=== PATIENT | male | born 1950 | race Caucasian/White ===

== ENCOUNTER 2017-01-09 21:11 | Emergency (ER) | payer OTHER, BC ==
[2017-01-09 21:23] VITALS: O2SAT 92
[2017-01-09] MEDS ORDERED: TDAP ADULT 0.5 ML INJ (BOOSTRIX) IM ONE (22:09)
--- NOTE | 2017-01-09 23:06 | EDPHY ---
H & P Stated Complaint: +etoh fell and hit his head, no LOC, lac to forehead Source: Patient, Family Exam Limitations: Intoxication - Personal History Current Tetanus Diphtheria and Acellular Pertussis (TDAP): Unsure - Medical/Surgical History Hx Asthma: Yes Hx Chronic Respiratory Disease: No Hx Diabetes: No Hx Cardiac Disease: No Hx Renal Disease: No Hx Cirrhosis: No Hx Alcoholism: Yes Hx HIV/AIDS: No Hx Splenectomy or Spleen Trauma: No Other PMH: parkinsons disease, orthopedic surgery - Social History Smoking Status: Former smoker Time Seen by Provider: 01/09/17 21:50 HPI/ROS: CHIEF COMPLAINT: forehead laceration HISTORY OF PRESENT ILLNESS: 66-year-old male presents emergency department with his with a laceration to his forehead. Patient was drinking alcohol tonight. He and his are here staying in their camper visiting from [place], he when outside to urinate, stumbled and tripped and fell striking his forehead on the ground. Patient has Parkinson's and has a normally unsteady gait. Patient is not anticoagulated. Unknown tetanus status. Patient denies neck pain. He denies any complaints. REVIEW OF SYSTEMS: A comprehensive 10 point review of systems is otherwise negative aside from elements mentioned in the history of present illness. (Trudy Ojeda) - Physical Exam Exam: General Appearance: Alert, no distress, smells of alcohol, excessive talking, right arm shaking due to Parkinson's, normal for patient Head: 3 cm forehead laceration Eyes: Pupils equal, round, reactive to light, EOMI, no trauma, no injection. Ears: Clear bilaterally, no perforation, no hemotympanum Nose: superficial abrasion to bridge of nose, no rhinorrhea, no septal hematoma Neck: The cervical spine is non-tender and there is no pain or neurologic deficits with active range of motion. Cardiovascular: Heart is regular rate and rhythm without murmur. Good capillary refill all extremities. Chest: Atraumatic, equal bilateral breath sounds. Chest is non-tender to palpation. Gastrointestinal: Soft, non-tender, non-distended. No rebound, guarding, or peritoneal signs. There is no evidence of external or internal trauma. Back:There is no thoracic or lumbar spine or paraspinal tenderness. Extremities: All extremities are non-tender to palpation without obvious deformity. There is full active range of motion of the joints. Neurological: no facial asymmetry, moves all extremities, follows commands Skin: 3 cm laceration to forehead (Trudy Ojeda) Constitutional: Initial Vital Signs Temperature (C) 36.4 C 01/09/17 21:20 Heart Rate 85 01/09/17 21:20 Respiratory Rate 18 01/09/17 21:20 Blood Pressure 146/96 H 01/09/17 21:20 O2 Sat (%) 92 01/09/17 21:20 O2 Delivery Mode Room Air Allergies/Adverse Reactions: No Known Allergies Allergy (Unverified 01/09/17 21:19) Home Medications: Medication Instructions Recorded Ropinirole ER 01/09/17 Medical Decision Making - Diagnostics Imaging: Discussed imaging studies w/ call center recruiter Radiologist - Diagnostics Imaging Results: Imaging Impressions Cervical Spine CT 01/09/17 22:09 Impression: Head CT: 1. No acute intracranial abnormalities. 2. 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 3. Right frontal scalp laceration and small associated hematoma. Cervical Spine: 1. No acute abnormalities. 2. Cannot exclude ligament, spinal cord and/or vascular abnormalities on this exam. If there is persistent pain or neurologic deficit, consider MRI and/or flexion and extension radiographs of the cervical spine. 3. Multilevel degenerative changes of the cervical spine, as above. Dr. Davila discussed these findings by telephone with Trudy Ojeda NP at 22:49. Head CT 01/09/17 22:09 Impression: Head CT: 1. No acute intracranial abnormalities. 2. 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 3. Right frontal scalp laceration and small associated hematoma. Cervical Spine: 1. No acute abnormalities. 2. Cannot exclude ligament, spinal cord and/or vascular abnormalities on this exam. If there is persistent pain or neurologic deficit, consider MRI and/or flexion and extension radiographs of the cervical spine. 3. Multilevel degenerative changes of the cervical spine, as above. Dr. Davila discussed these findings by telephone with Trudy Ojeda NP at 22:49. Procedures: Procedure: Laceration repair. Verbal consent was obtained from the patient. The 3 cm laceration on the forehead was anesthetized using 1% lidocaine with epinephrine. The wound was carefully irrigated by the emergency department marine diesel technician. Next, the wound was prepped and draped in sterile fashion and explored to its base with a gloved finger. There were no deep structures involved. No vascular injury was identified. No foreign bodies were identified. The wound was repaired with 5.0 Prolene, 6 simple interrupted sutures. The wound repair was simple. The procedure was performed by myself. Tetanus and antibiotic status were addressed. (Trudy Ojeda) ED Course/Re-evaluation: 66-year-old male presents emergency department with his with a laceration to his forehead after a mechanical trip and fall striking his head on the ground. Patient has Parkinson's and has an unsteady gait, he was also drinking alcohol today. He is not anticoagulated. CT brain and C-spine obtained which showed no acute abnormality. Tetanus was updated today, laceration was sutured without difficulty. Patient is given return precautions. (Trudy Ojeda) Differential Diagnosis: The differential diagnosis for the patient's head injury included but was not limited to concussion, skull fracture, intra-parenchymal contusion, subarachnoid , subdural and epidural hematoma. (Trudy Ojeda) Other Provider: PHYSICIAN DOCUMENTATION: The patient was evaluated and managed by the Physician Carburetor Rebuilder. My co- signature indicates that I have reviewed this chart and I agree with the findings and plan of care as documented. I am the secondary supervising physician. (Radha Larsen) - Data Points Medications Given: Discontinued Medications Diphtheria/Tetanus/Acell Pertussis (Boostrix) 0.5 ml IM .ONCE ONE Stop: 01/09/17 22:10 Last Admin: 01/09/17 22:51 Dose: 0.5 ml Departure - Departure Disposition: Home, Routine, Self-Care Clinical Impression: Minor head injury without loss of consciousness, Forehead laceration Condition: Good Instructions: Laceration (ED), Head Injury (ED) Additional Instructions: Sutures need to be removed in 5-7 days. You may return to the emergency department to do this. Return to the emergency department for any forceful vomiting, confusion, fevers , new symptoms or concerns. Referrals: MEJIA DICKERSON [Other] - As per Instructions
[2017-01-09 23:27] VITALS: BP 145/95; PULSE 84; RESP 16; TEMP 97.7
== END 2017-01-09 23:26 | disposition home or self-care (01) ==
PROC: 0HQ1XZZ Repair Face Skin, External Approach (ICD-10-PCS; principal; 2017-01-09)
DX: S01.81XA Laceration without foreign body of other part of head, initial encounter (principal); J45.909 Unspecified asthma, uncomplicated; G20 Parkinson's disease; Z23 Encounter for immunization; Z87.891 Personal history of nicotine dependence; W01.198A Fall on same level from slipping, tripping and stumbling with subsequent striking against other object, initial encounter